=== PATIENT | male | born 1965 | race Caucasian/White ===

== ENCOUNTER 2020-01-24 11:08 | Emergency (ER) | payer OTHER | END 2020-01-24 11:53 | disposition home or self-care (01) | LOC: ERS 11:08 | DX: S16.1XXA Strain of muscle, fascia and tendon at neck level, initial encounter (principal); I10 Essential (primary) hypertension; M19.90 Unspecified osteoarthritis, unspecified site; F32.9 Major depressive disorder, single episode, unspecified; F17.210 Nicotine dependence, cigarettes, uncomplicated; Z79.899 Other long term (current) drug therapy; X50.1XXA Overexertion from prolonged static or awkward postures, initial encounter | CPT/HCPCS: 99281 ==

== ENCOUNTER 2021-08-07 09:53 | Outpatient (CLI) | payer OTHER | END 2021-08-07 09:54 | disposition home or self-care (01) | LOC: BICMRI 09:53 | PROVIDERS: ATTEND Family Medicine | DX: M51.16 Intervertebral disc disorders with radiculopathy, lumbar region (principal); G89.4 Chronic pain syndrome; M47.26 Other spondylosis with radiculopathy, lumbar region | CPT/HCPCS: 72148 ==

== ENCOUNTER 2022-04-01 09:57 | Emergency (ER) | payer OTHER ==
[2022-04-01] MEDS ORDERED: Ketorolac Tromethamine 30 MG/ML VIAL ONE (11:44)
== END 2022-04-01 11:40 | disposition home or self-care (01) ==
LOC: ERS 09:57
DX: M54.50 Low back pain, unspecified (principal); I10 Essential (primary) hypertension; F17.210 Nicotine dependence, cigarettes, uncomplicated; W07.XXXA Fall from chair, initial encounter
CPT/HCPCS: 96372; 99283; J1885

== ENCOUNTER 2022-10-23 01:00 | Inpatient (IN) | payer OTHER ==
[2022-10-23] MEDS ORDERED: Propofol 1,000 MG/100 ML VIAL IV ONE (01:03)
[2022-10-23] MEDS ORDERED: FENTANYL 50 MCG/ML 1 ML VIAL ONE (01:11)
[2022-10-23] MEDS ORDERED: Albuterol Sulfate 2.5 mg/0.5 ml Neb ONE (01:12)
[2022-10-23] MEDS ORDERED: Albuterol Sulfate 2.5 mg/3 ml Neb ONE ×2 (01:12→02:07)
[2022-10-23] MEDS ORDERED: Fentanyl CADD 100 ML IV SCH (01:15)
[2022-10-23 01:44] LABS: Analyzer IN Cardio ER; Base Excess (BEa) 7.1 mEq/L (-2.0 to +3.0); Calcium, Ionized (arterial) 1.07 mmol/L (1.12-1.30); Carboxyhemoglobin (COHb) 3.3 gm% (0.0-3.0); Hemoglobin (Hb) 15.2 g/dL (14.0-18.0); O2 Tension (PaO2), arterial 64.4 mmHg (80.0-100.0); Potassium - ABG Lab 4.74 mmol/L (3.70-5.30); pH, Arterial 7.36 (7.35-7.45)
[2022-10-23 01:46] LABS: CO2 Tension 63.4 mmHg (35.0-45.0); Puncture Site RRA
[2022-10-23] MEDS ORDERED: Ketamine 500 mg/500 ml in NS IVPB SCH (02:15)
[2022-10-23] MEDS ORDERED: Acetaminophen 650 MG Suppository PR PRN (02:43)
[2022-10-23] MEDS ORDERED: Ondansetron PF 4 MG/2 ML Vial IVP PRN (02:43)
[2022-10-23] MEDS ORDERED: Ondansetron ODT 4 MG TAB PO PRN (02:43)
[2022-10-23] MEDS ORDERED: Acetaminophen 325 MG TAB PO PRN (02:43)
[2022-10-23] MEDS ORDERED: NOREPINEPHRINE 8 MG/250 ML-D5W 250 ML IVPB PRN (02:43)
[2022-10-23] MEDS ORDERED: Ventilator Sedation Protocol 1 EACH FS SCH (02:45)
[2022-10-23] MEDS ORDERED: Propofol BOLUS 1,000 MG/100 ML VIAL IV PRN (03:00)
[2022-10-23] MEDS ORDERED: Fentanyl BOLUS 250 ML IVPB PRN (03:00)
[2022-10-23] MEDS ORDERED: DISCONTINUE PREVIOUS NARCOTIC PAIN MEDICATIONS AND BENZODIAZEPINES FS SCH (03:00)
[2022-10-23] MEDS ORDERED: Morphine 4 MG/ML VIAL SLOW IVP PRN (03:00)
[2022-10-23] MEDS ORDERED: Dextrose 50% Abboject 50 ML SYRINGE SLOW IVP PRN (03:36)
[2022-10-23] MEDS ORDERED: HumaLOG 300 UNITS/3 ML VIAL SC PRN (03:36)
[2022-10-23] MEDS ORDERED: Dextrose 5% in Water 1,000 ML IV PRN (03:36)
[2022-10-23 04:08] LABS: Anion Gap 14 mmol/L (10-20); BUN (Urea Nitrogen) 18 mg/dL (8.4-25.7); Calc. Creatinine Clearance 106 mL/min (70-130); Calcium 8.3 mg/dL (7.8-10.44); Carbon Dioxide 32 mmol/L (22-29); Chloride 94 mmol/L (98-107); Estimated GFR 51; Glucose 237 mg/dL (70-105); Potassium 4.4 mmol/L (3.5-5.1); Sodium 136 mmol/L (136-145)
[2022-10-23] MEDS: Nicotine 14 MG PATCH TD SCH (04:26)
[2022-10-23] MEDS: HumaLOG 300 UNITS/3 ML VIAL SC PRN ×2 (04:27→18:23)
[2022-10-23 04:45] LABS: #Lymphocytes 0.6 thou/uL (1.20-3.40); #Monocytes 0.4 thou/uL (0.11-0.59); #Neutrophils 14.3 thou/uL (1.40-6.50); %Basophils 0.2 % (0.0-1.0); %Eosinophils 0.2 % (0.0-10.0); %Lymphocytes 4.1 % (21.0-51.0); %Monocytes 2.7 % (0.0-10.0); %Neutrophils 92.9 % (42.0-75.0); Band 17 % (5-11); Hemoglobin 13.9 g/dL (14.0-18.0); MDiff Complete? YES; Mean Corpuscular HGB CONC 29.9 g/dL (32.0-36.0); Mean Corpuscular Hemoglobin 30.3 pg (27.0-31.0); Mean Platelet Volume 7.9 fL (7.4-10.4); Neutrophil 83 % (42-75); Platelet Count 268 10x3/uL (130-400); Platelet Morphology Comment Appears Adequate; RBC Distribution Width 14.7 % (11.5-14.5); RBC Morphology Normal; White Blood Cell (WBC) Count 15.4 10x3/uL (4.8-10.8)
[2022-10-23] MEDS: methylPREDNISolone Sod Succ 40 MG VIAL IVP SCH ×3 (06:34→18:31)
[2022-10-23 06:39] LABS: SARS-CoV-2 NAA Rapid Test Not Detected (NotDetected)
[2022-10-23] MEDS ORDERED: Acetaminophen 325 MG/10.15 ML UDCUP PO PRN (08:18)
[2022-10-23 08:40] LABS: Actual Bicarbonate (HCO3a) 41.8 mEq/L (22-28); Base Excess (BEa) 8.6 mEq/L (-2.0 to +3.0); Calcium, Ionized (arterial) 1.17 mmol/L (1.12-1.30); Carboxyhemoglobin (COHb) 1.8 gm% (0.0-3.0); Hemoglobin (Hb) 15.1 g/dL (14.0-18.0); Potassium - ABG Lab 5.42 mmol/L (3.70-5.30)
[2022-10-23] MEDS: Pantoprazole 40 MG VIAL IVP SCH (08:41)
[2022-10-23 08:52] LABS: ALV-art Gradient 362.025 mmHg (0-20); CO2 Tension 111.5 mmHg (35.0-45.0); Puncture Site RRA; pH, Arterial 7.19 (7.35-7.45)
[2022-10-23] MEDS ORDERED: methylPREDNISolone Sod Succ 40 MG VIAL IVP SCH (09:00)
[2022-10-23] MEDS ORDERED: Enoxaparin Sodium 40 MG/0.4 ML SYRINGE SC SCH (09:00)
[2022-10-23] MEDS: Fentanyl CADD 100 ML IV SCH ×2 (11:56→23:06)
[2022-10-23] MEDS: Midazolam HCl 2 mg/2 ml Vial SLOW IVP PRN ×3 (12:15→20:12)
[2022-10-23] MEDS ORDERED: Furosemide 20 MG/2 ML VIAL SLOW IVP SCH (14:45)
[2022-10-23] MEDS: Azithromycin 500 MG in Sodium Chloride 0.9% 250 ML 250 ML IVPB SCH (15:00)
[2022-10-23] MEDS: Enoxaparin Sodium 30 MG/0.3 ML SYRINGE SC SCH (20:12)
[2022-10-23] MEDS: cefTRIAXone\\ROCEPHIN 1 GM in Sodium Chloride 0.9% 100 ML IVPB SCH (21:16)
[2022-10-23] MEDS: Propofol 1,000 MG/100 ML VIAL IV PRN (22:42)
[2022-10-24] MEDS: methylPREDNISolone Sod Succ 40 MG VIAL IVP SCH ×4 (00:47→21:32)
[2022-10-24 04:36] LABS: Anion Gap 12 mmol/L (10-20); BUN (Urea Nitrogen) 32 mg/dL (8.4-25.7); Calc. Creatinine Clearance 176 mL/min (70-130); Calcium 8.7 mg/dL (7.8-10.44); Carbon Dioxide 35 mmol/L (22-29); Chloride 91 mmol/L (98-107); Estimated GFR 93; Glucose 163 mg/dL (70-105); Sodium 133 mmol/L (136-145)
[2022-10-24] MEDS: Nicotine 14 MG PATCH TD SCH (04:50)
[2022-10-24] MEDS: Propofol 1,000 MG/100 ML VIAL IV PRN ×4 (04:50→21:33)
[2022-10-24 05:00] LABS: Anisocytosis SLIGHT = 6-15 cells (100X) (0-5/hpf); Band 15 % (5-11); Hemoglobin 12.9 g/dL (14.0-18.0); Hypochromia SLIGHT = 6-15 cells (100X) (0-5/hpf); Lymphocytes 5 % (21-51); MDiff Complete? YES; Macrocytosis SLIGHT = 6-15 cells (100X) (0-5/hpf); Mean Corpuscular HGB CONC 30.1 g/dL (32.0-36.0); Mean Corpuscular Hemoglobin 29.9 pg (27.0-31.0); Mean Corpuscular Volume 99.3 fl (78.0-98.0); Mean Platelet Volume 8.2 fL (7.4-10.4); Monocytes 5 % (0-10); Neutrophil 75 % (42-75); Ovalocytes SLIGHT = 2-5 cells (100X) (0-1/hpf); Platelet Count 234 10x3/uL (130-400); Platelet Morphology Comment Appears Adequate; Polychromasia SLIGHT = 2-3 cells (100X) (0-2/hpf); RBC Distribution Width 14.8 % (11.5-14.5); Red Blood Cell (RBC) Count 4.33 mill/uL (4.70-6.10); White Blood Cell (WBC) Count 20.7 10x3/uL (4.8-10.8)
[2022-10-24] MEDS: Midazolam HCl 2 mg/2 ml Vial SLOW IVP PRN (05:07)
[2022-10-24 07:43] LABS: Actual Bicarbonate (HCO3a) 41.2 mEq/L (22-28); Base Excess (BEa) 12.4 mEq/L (-2.0 to +3.0); Calcium, Ionized (arterial) 1.12 mmol/L (1.12-1.30); Carboxyhemoglobin (COHb) 1.2 gm% (0.0-3.0); Hemoglobin (Hb) 13.7 g/dL (14.0-18.0); O2 Tension (PaO2), arterial 64.5 mmHg (80.0-100.0); Potassium - ABG Lab 4.94 mmol/L (3.70-5.30); pH, Arterial 7.36 (7.35-7.45)
[2022-10-24 07:44] LABS: ALV-art Gradient 270.425 mmHg (0-20); CO2 Tension 74.3 mmHg (35.0-45.0); Puncture Site RRA
[2022-10-24] MEDS: Pantoprazole 40 MG VIAL IVP SCH (09:14)
[2022-10-24] MEDS: Enoxaparin Sodium 30 MG/0.3 ML SYRINGE SC SCH (09:14)
[2022-10-24] MEDS: Fentanyl CADD 100 ML IV SCH (11:01)
[2022-10-24] MEDS ORDERED: Dexmedetomidine In 0.9 % NaCl 100 ML IVPB SCH (11:15)
[2022-10-24] MEDS: Furosemide 40 MG/4 ML VIAL SLOW IVP SCH (13:03)
[2022-10-24] MEDS: Azithromycin 500 MG in Sodium Chloride 0.9% 250 ML 250 ML IVPB SCH (15:07)
[2022-10-24] MEDS ORDERED: Enoxaparin Sodium 40 MG/0.4 ML SYRINGE SC SCH (21:00)
[2022-10-24] MEDS: cefTRIAXone\\ROCEPHIN 1 GM in Sodium Chloride 0.9% 100 ML IVPB SCH (21:32)
[2022-10-25] MEDS ORDERED: Fentanyl CADD 100 ML ONE (01:13)
[2022-10-25] MEDS: Fentanyl CADD 100 ML IV SCH (01:17)
[2022-10-25] MEDS: Propofol 1,000 MG/100 ML VIAL IV PRN (02:35)
[2022-10-25] MEDS: Nicotine 14 MG PATCH TD SCH (02:35)
[2022-10-25] MEDS: HumaLOG 300 UNITS/3 ML VIAL SC PRN (05:26)
[2022-10-25] MEDS: methylPREDNISolone Sod Succ 40 MG VIAL IVP SCH ×3 (06:21→21:56)
[2022-10-25] MEDS: Furosemide 40 MG/4 ML VIAL SLOW IVP SCH (07:47)
[2022-10-25] MEDS: Enoxaparin Sodium 40 MG/0.4 ML SYRINGE SC SCH (09:01)
[2022-10-25] MEDS ORDERED: hydrALAZINE 20 MG/ML VIAL SLOW IVP PRN (09:02)
[2022-10-25] MEDS ORDERED: Lisinopril 20 MG TAB PO SCH (09:30)
[2022-10-25] MEDS ORDERED: Albuterol Sulfate 2.5 mg/3 ml Neb NEB PRN (10:14)
[2022-10-25] MEDS ORDERED: FLUoxetine HCl 20 MG CAP PO SCH (10:45)
[2022-10-25 11:22] VITALS: BMI 49.5
[2022-10-25] MEDS: Azithromycin 500 MG in Sodium Chloride 0.9% 250 ML 250 ML IVPB SCH (14:49)
[2022-10-25] MEDS: tiZANidine HCl 4 MG TAB PO SCH ×2 (14:50→21:13)
[2022-10-25 15:07] LABS: Hemoglobin 14.6 g/dL (14.0-18.0); Mean Corpuscular HGB CONC 30.4 g/dL (32.0-36.0); Mean Corpuscular Hemoglobin 29.2 pg (27.0-31.0); Mean Corpuscular Volume 96.1 fl (78.0-98.0); Mean Platelet Volume 8.2 fL (7.4-10.4); Platelet Count 306 10x3/uL (130-400); RBC Distribution Width 14.9 % (11.5-14.5); Red Blood Cell (RBC) Count 4.98 mill/uL (4.70-6.10); White Blood Cell (WBC) Count 22.2 10x3/uL (4.8-10.8)
[2022-10-25 15:25] LABS: ALT (SGPT) 19 U/L (8-55); AST (SGOT) 20 U/L (5-34); Albumin 3.7 g/dL (3.5-5.0); Alkaline Phosphatase 63 U/L (40-110); BUN (Urea Nitrogen) 36 mg/dL (8.4-25.7); Calc. Creatinine Clearance 171 mL/min (70-130); Calcium 9.5 mg/dL (7.8-10.44); Estimated GFR 91; Globulin 3.8 g/dL (2.4-3.5); Glucose 112 mg/dL (70-105); Protein, Total 7.5 g/dL (6.0-8.3)
[2022-10-25 15:37] LABS: Chloride 89 mmol/L (98-107); Potassium 4.2 mmol/L (3.5-5.1); Sodium 136 mmol/L (136-145)
[2022-10-25 15:40] LABS: Anion Gap 17 mmol/L (10-20); Carbon Dioxide 34 mmol/L (22-29)
[2022-10-25 16:01] LABS: Lymphocytes 5 % (21-51); MDiff Complete? YES; Monocytes 3 % (0-10); Neutrophil 92 % (42-75); Platelet Morphology Comment Appears Adequate
[2022-10-25] MEDS: Gabapentin 300 MG CAP PO SCH (21:12)
[2022-10-25] MEDS: cefTRIAXone\\ROCEPHIN 1 GM in Sodium Chloride 0.9% 100 ML IVPB SCH (21:13)
[2022-10-26 05:13] LABS: #Lymphocytes 0.9 thou/uL (1.20-3.40); #Monocytes 0.7 thou/uL (0.11-0.59); #Neutrophils 16.3 thou/uL (1.40-6.50); %Eosinophils 0.1 % (0.0-10.0); %Lymphocytes 4.8 % (21.0-51.0); %Monocytes 4.1 % (0.0-10.0); Hemoglobin 14.2 g/dL (14.0-18.0); Mean Corpuscular HGB CONC 30.8 g/dL (32.0-36.0); Mean Corpuscular Hemoglobin 29.8 pg (27.0-31.0); Mean Corpuscular Volume 96.6 fl (78.0-98.0); Mean Platelet Volume 8.3 fL (7.4-10.4); Platelet Count 290 10x3/uL (130-400); RBC Distribution Width 15.1 % (11.5-14.5); Red Blood Cell (RBC) Count 4.78 mill/uL (4.70-6.10); White Blood Cell (WBC) Count 17.9 10x3/uL (4.8-10.8)
[2022-10-26] MEDS: Nicotine 14 MG PATCH TD SCH (05:16)
[2022-10-26] MEDS: methylPREDNISolone Sod Succ 40 MG VIAL IVP SCH ×3 (05:17→21:59)
[2022-10-26 05:26] LABS: Hemoglobin A1c 6.5 % (4.0-6.0)
[2022-10-26 05:34] LABS: Anion Gap 12 mmol/L (10-20); BUN (Urea Nitrogen) 34 mg/dL (8.4-25.7); Calc. Creatinine Clearance 182 mL/min (70-130); Calcium 9.2 mg/dL (7.8-10.44); Carbon Dioxide 35 mmol/L (22-29); Chloride 92 mmol/L (98-107); Estimated GFR 98; Glucose 112 mg/dL (70-105); Potassium 4.3 mmol/L (3.5-5.1); Sodium 135 mmol/L (136-145)
[2022-10-26] MEDS: Gabapentin 300 MG CAP PO SCH ×2 (10:11→21:58)
[2022-10-26] MEDS: Enoxaparin Sodium 40 MG/0.4 ML SYRINGE SC SCH (10:11)
[2022-10-26] MEDS: FLUoxetine HCl 20 MG CAP PO SCH (10:12)
[2022-10-26] MEDS: Lisinopril 20 MG TAB PO SCH (10:12)
[2022-10-26] MEDS: tiZANidine HCl 4 MG TAB PO SCH ×3 (10:12→21:58)
[2022-10-26] MEDS: Atorvastatin Calcium 40 MG TAB PO SCH (10:12)
[2022-10-26] MEDS: traMADol HCl 50 MG TAB PO PRN (10:22)
[2022-10-26] MEDS: Azithromycin 500 MG in Sodium Chloride 0.9% 250 ML 250 ML IVPB SCH (18:51)
[2022-10-26] MEDS: cefTRIAXone\\ROCEPHIN 1 GM in Sodium Chloride 0.9% 100 ML IVPB SCH (21:59)
[2022-10-27] MEDS: methylPREDNISolone Sod Succ 40 MG VIAL IVP SCH ×2 (06:32→14:05)
[2022-10-27] MEDS: Nicotine 14 MG PATCH TD SCH (06:33)
[2022-10-27 07:04] LABS: #Eosinphils 0.1 thou/uL (0.0-0.7); #Lymphocytes 1.2 thou/uL (1.20-3.40); %Basophils 0.3 % (0.0-1.0); %Lymphocytes 7.8 % (21.0-51.0); %Monocytes 6.3 % (0.0-10.0); %Neutrophils 84.6 % (42.0-75.0); Hemoglobin 16.1 g/dL (14.0-18.0); Mean Corpuscular HGB CONC 30.6 g/dL (32.0-36.0); Mean Platelet Volume 8.7 fL (7.4-10.4); Platelet Count 252 10x3/uL (130-400); Red Blood Cell (RBC) Count 5.38 mill/uL (4.70-6.10); White Blood Cell (WBC) Count 15.3 10x3/uL (4.8-10.8)
[2022-10-27 08:07] VITALS: TEMP 98.2
[2022-10-27] MEDS: Gabapentin 300 MG CAP PO SCH (09:28)
[2022-10-27] MEDS: Enoxaparin Sodium 40 MG/0.4 ML SYRINGE SC SCH (09:28)
[2022-10-27] MEDS: tiZANidine HCl 4 MG TAB PO SCH ×2 (09:29→14:05)
[2022-10-27] MEDS: Atorvastatin Calcium 40 MG TAB PO SCH (09:30)
[2022-10-27] MEDS: FLUoxetine HCl 20 MG CAP PO SCH (09:30)
[2022-10-27] MEDS: Lisinopril 20 MG TAB PO SCH (09:30)
[2022-10-27] MEDS: traMADol HCl 50 MG TAB PO PRN (09:34)
[2022-10-27 11:29] LABS: Calcium 9.8 mg/dL (7.8-10.44); Chloride 96 mmol/L (98-107); Potassium 4.8 mmol/L (3.5-5.1); Sodium 136 mmol/L (136-145)
[2022-10-27 11:30] LABS: Glucose 146 mg/dL (70-105)
[2022-10-27 11:31] LABS: Anion Gap 16 mmol/L (10-20); Carbon Dioxide 29 mmol/L (22-29)
[2022-10-27 11:33] LABS: Calc. Creatinine Clearance 170 mL/min (70-130); Estimated GFR 91
[2022-10-27 11:34] LABS: BUN (Urea Nitrogen) 37 mg/dL (8.4-25.7)
[2022-10-27] MEDS: Azithromycin 500 MG in Sodium Chloride 0.9% 250 ML 250 ML IVPB SCH (14:05)
[2022-10-27 17:37] VITALS: BP 122/75
== END 2022-10-27 18:19 | disposition home or self-care (01) | DRG 871 ==
LOC: ERS 01:00 → CCU 02:09 → T4-A 10-26 17:11
PROVIDERS: ADMIT Student in an Organized Health Care Education/Training Program; ATTEND Family Medicine
PROC: 5A1945Z Respiratory Ventilation, 24-96 Consecutive Hours (ICD-10-PCS; principal; 2022-10-23)
PROC: 3E033XZ Introduction of Vasopressor into Peripheral Vein, Percutaneous Approach (ICD-10-PCS; 2022-10-23)
PROC: 3E03329 Introduction of Other Anti-infective into Peripheral Vein, Percutaneous Approach (ICD-10-PCS; 2022-10-23)
PROC: 0D9670Z Drainage of Stomach with Drainage Device, Via Natural or Artificial Opening (ICD-10-PCS; 2022-10-23)
DX: A41.9 Sepsis, unspecified organism (principal); G93.41 Metabolic encephalopathy; J96.01 Acute respiratory failure with hypoxia; J96.02 Acute respiratory failure with hypercapnia; J18.0 Bronchopneumonia, unspecified organism; J44.1 Chronic obstructive pulmonary disease with (acute) exacerbation; N17.9 Acute kidney failure, unspecified; J44.0 Chronic obstructive pulmonary disease with (acute) lower respiratory infection; Z68.42 Body mass index [BMI] 45.0-49.9, adult; F17.290 Nicotine dependence, other tobacco product, uncomplicated; I10 Essential (primary) hypertension; Z20.822 Contact with and (suspected) exposure to COVID-19; R73.9 Hyperglycemia, unspecified; E87.5 Hyperkalemia; E66.01 Morbid (severe) obesity due to excess calories; Z79.899 Other long term (current) drug therapy; Z98.890 Other specified postprocedural states; Z90.89 Acquired absence of other organs
CPT/HCPCS: 36415; 36416; 36600; 71045; 80048; 80053; 82805; 83036; 83880; 84145; 85025; 93306; 94002; 94003; 94640; 94644; 96365; 96375; 96376; C9113; J0360; J0456; J0696; J1650; J1815; J1940; J2250; J2704; J2920; J3010; J3490; J7030; J7050; J7611; J7620; U0002